=== PATIENT | male | born 1935 | race Caucasian/White ===

== ENCOUNTER 2025-05-25 11:50 | Outpatient (OUT) | payer OTHER, SELFPAY ==
--- OUTSIDE RECORDS SUMMARY | 2025-05-13 05:45 | XMS_ITS ---
Author Organization [facility] Address [address] [place] [address] Care Team Providers Care Jewel Waxer Name Role Phone KarinanikolemannSigifredo Primary Care Provider Ayo Gutierrez Unavailable [phone] Allergies No Known Allergies Reason For Referral Reason APPROVED ....PLEASE OBTAIN AUTHORIZATION FOR MRI WITH AND WITHOUT CONTRAST Diagnosis 1 Mass of left wrist ( R22.32) Referral Organization [facility] Referring Provider First Name Ayo Referring Provider Last Name Brittanie Referring Provider Speciality Orthopedic Surgery Referred Organization [facility] jackie Referred Address [place], [place], Procedure 1 MRI JOINT UPR EXTR W /O&W/DYE ([id number]) General Notes Mone Vincent 025 09:22:06 AM >IM ASSUMING FOR THE WRIST?, Jigna Chavez 05/16/2025 11:00:42 AM > Yes, left wrist, Mone Vincent 05/16/2025 11:04:20 AM >AVAILITY DOWNCarlton Amy 05/16/2025 01:28:31 PM >APPROVED PER DEVOTED AUTH #[id number] VALID 05/17/2025-08/17/2025 COPY IN CHART MA NOTIFIED REF FAXED TO Scott ARTHUR Kimberly 05/16/2025 03:32:21 PM > Faxed to Trav Referral Priority Routine REASON FOR VISIT LEFT WRIST PAIN Social History Tobacco Use: Social History Observation Description Date Details (start date - stop date) Current Smoker NA - NA AUDIT-C (Standard) Question Answer Notes Did you have a drink containing alcohol in the p ast year? No Points 0 Interpretation Negative Tobacco Control (Standard) Question Answer Notes Tobacco use: Current smoker Encounters Encounter Location Date Provider Diagnosis [facility] [address] [place] [address] 05/13/2025 Ayo Gu Mass of left wrist R22.32 and Pre-procedure lab exam Z01.812 Assessments Encounter Date Diagnosis (ICD Code) Assessment Notes Treatment Notes Treatment Clinical Notes Section Notes 05/13/2025 Mass of left wrist (ICD-10 - R22.32) 05/13/2025 Pre-procedure lab exam (ICD-10 - Z01.812) 05/13/2025 Other Given his increased pain after the cortisone injection I have recommended an MRI with and without contrast of the left wrist to evaluate for surgical excision. Will follow-up after this is completed. Plan has been agreed upon by my supervising physician, [MD Vick. Plan Of Treatment Treatment Notes Assessment Notes Other Given his increased pain after the cortisone injection I have recommended an MRI with and without contrast of the left wrist to evaluate for surgical excision. Will follow-up after this is completed. Plan has been agreed upon by my supervising physician, [MD Vick. Pending Test Test Name Order Date MRI : Wrist W AND W/O Contrast LEFT - 73 [id number] 05/13/2025 Creatinine 05/13/2025 Referrals Referral Date Details 05/13/2025 05/13/2025, APPROVED ....PLEASE OBTAIN AUTHORIZATION FOR MRI WITH AND WITHOUT CONTRAST, JAYY Arthur Next Appt Details Follow Up: AFTER MRI, Reason : Provider Name:Ayo Harris and, 07/29/2025 10:45:00 AM, [address], [place], [address], Progress Notes * JAILYN SALGUERO EDOB: [birth year] (89 yo M)Acc No.[id number]:05/13/2025 Patient: JAILYN BECKER Provider: John Gu MD :1935 A ge:89 Y S ex:Male Date:05/13/2025 Address[facility] [address] [phone] Pcp:Sigifredo Brooks Subjective: * Chief Complaints: * 1 . LEFT WRIST PAIN. * HPI: G eneral Info per Patient Report: Patient presents today with complaints of persistent left wrist pain. He had a cortisone injection a couple weeks ago. Last week he was having a lot of pain but is starting to get a little bit better. He was a little worried because the previous injection helped significantly but this past 1 did not really seem to calm down the pain. The cyst was much larger and that it is currently. He denies any numbness or tingling. * Medical History: M edical History Verified. * Family History: N o Family History documented.. * Social History: E xercise regularly D o you exercise? N o. A TREVOR-C (Standard) D id you have a drink containing alcohol in the past year? N o, P oints 0 , I nterpretation N egative. T obacco Control (Standard) T obacco use: C urrent smoker. * Allergies: N .K.D.A. Objective: * Vitals: * Examination: G eneral examination: T he patient is a age-appropriate [], alert and oriented x3 and in no acute distress. Well-dressed and well-groomed. Stands with normal body position and in a calm mood. On examination today there is a large ganglion cyst to the volar aspect of his wrist which is tender to palpate. He has some tenderness to the radiocarpal joint as well as the first CMC. No erythema drainage or clinical signs of infection. Palpable pulses. Brisk capillary fill and intact sensation to light touch. specific exam: x-ray imaging studies: [] specific exam: x-ray imaging studies: Assement:. Assessment: * Assessment: 1. M ass of left wrist - R22.32 (Primary) 2 . P re-procedure lab exam - Z01.812 Plan: * Treatment: 2. P re-procedure lab exam L AB: Creatinine 3. O thers Notes: Given his increased pain after the cortisone injection I have recommended an MRI with and without contrast of the left wrist to evaluate for surgical excision. Will follow-up after this is completed. Plan has been agreed upon by my supervising physician, [MD Vick. * Follow Up: A FTER MRI Forms: * Images: * Electronic signature of Dimitry Gu MD on 05/25/2025 at 12:01 PM EDT Sign off status: Pending * Provider: John Gu MD Date: 05/13/2025 Generated for Printi crissy/Adrián/eTransmitting on: 05/25/2025 12:01 PM EDT History and Physical Notes * HPI (History of Present Illness) Category Sub-Category Detail Notes Category Not es General Info per Patient Report Patient presents tod ay with complaints of persistent left wrist pain. He had a cortisone injection a couple weeks ago. Last week he was having a lot of pain but is starting to get a little bit better. He was a little worried because the previous injection helped significantly but this past 1 did not really seem to calm down the pain. The cyst was much larger and that it is currently. He denies any numbness or tingling. Examination Category Sub-Category Detail Notes Category Not es General examination The patient is a age-appropriate [], alert and oriented x3 and in no acute distress. Well-dressed and well-groomed. Stands with normal body position and in a calm mood. On examination today there is a large ganglion cyst to the volar aspect of his wrist which is tender to palpate. He has some tenderness to the radiocarpal joint as well as the first CMC. No erythema drainage or clinical signs of infection. Palpable pulses. Brisk capillary fill and intact sensation to light touch. specific exam: x-ray imaging studies: [] specific exam: x-ray imaging studies: Assement: Consultation Request Notes Referral Date Referring Provider Referred Provider Not es 05/13/2025 Ayo Gu , APPROVED .. ..PLEASE OBTAIN AUTHORIZATION FOR MRI WITH AND WITHOUT CONTRAST
--- OUTSIDE RECORDS SUMMARY | 2025-05-25 12:01 | XMS_ITS | Clinical Summary ---
Author Organization [facility] Address [address], [address] [place] [address] Care Team Providers Care Floor Refinisher Name Role Phone Sigifredo Brooks DNP Primary Care Provider [phone] Allergies No known active allergies Medications nitroGLYCERIN (NITROSTAT) 0.[address] 1 tablet under the tongue every 5 minutes as needed for Chest pain 25 tablet 06/23/20 20 Active lisinopril (PRINIVIL;ZESTRI L) 5 MG tablet Take 1 tablet by mouth daily 90 tablet 1 02/04/20 25 Active metoprolol succinate (TOPROL XL) 50 MG extended release tablet TAKE 1 TABLET BY MOUTH DAILY 90 tablet 1 03/14/20 25 Active hydroCHLOROthiaz elyse (HYDRODIURIL) 50 MG tabletIndication s:Essential hypertension TAKE 1 TABLET BY MOUTH DAILY 90 tablet 1 03/14/20 25 Active gabapentin (NEURONTIN) 800 MG tablet TAKE 1 TABLET BY MOUTH IN THE MORNING and TAKE 2 TABLETS AT BEDTIME 90 tablet 2 04/28/20 25 025 Active gabapentin (NEURONTIN) 800 MG tablet TAKE 1 TABLET BY MOUTH IN THE MORNING and TAKE 2 TABLETS AT BEDTIME 90 tablet 2 01/21/20 25 025 Discontinued Active Problems Problem Noted Date Diagnosed Date 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 06/20/2023 Neuropathic pain of right hand 06/20/2023 Chronic bilateral low back pain without sciatica 09/13/2019 HTN (hypertension) 12/31/2012 Hyperlipemia 12/31/2012 Resolved Problems Problem Noted Date Diagnosed Date Resolved Date Thrombocytopenia, unspecified 07/22/2023 03/04/2024 Coagulation defect 06/20/2023 3 Encounters Date Type Department Care Team Description 04/28/[address] [address] Sigifredo Brooks DNP Medication Refill 04/19/[address] [address] Sigifredo Brooks DNP wrist pain 03/14/[address] [address] Sigifredo Brooks DNP Medication Refill 03/10/2025 1:20 PM EDT Office Visit [address] [address] Sigifredo Brooks DNP Medicare annual wellness visit, subsequent (Primary Dx); Essential hypertension; Unsteady gait 03/10/[address] [address] Sigifredo Brooks DNP from Last 3 Months Immunizations Immunization Administration Dates Next Due Influenza, FLUARIX, FLULAVAL , FLUZONE (age 6 mo+) and AFLURIA, (age 3 y+), Quadv PF, 0.5mL 09/13/2019,09/18/2018 Influenza, FLUZONE High Dose , (age 65 y+), IM, Trivalent PF, 0.5mL 08/03/2020,08/03/2019 Pneumococcal, PCV-13, PREVNAR 13, (age 6w+), IM, 0.5mL 08/03/2019,02/29/2016 Pneumococcal, PPSV23, PNEUMO VAX 23, (age 2y+), SC/IM, 0.5mL 07/14/2019 Family History Medical History Relation Name Comments Heart Disease Father Cancer Mother Diabetes Sister 1 Diabetes Sister 2 Relation Name Status Comments Father Mother Sister 1 Alive Sister 2 Alive Social History Tobacco Use Types Packs/Day Years Used Date Smoking Tobacco: Every Day Cigarettes 0.5 71.6 Started: 11/03/1951 Passive Smoke Exposure: Current Smokeless Tobacco: Never Tobacco Cessation:Ready to Q uit: No; Counseling Given: Yes Comments:would like to quit/ cutting back Alcohol Use Standard Drinks/Week Comments Yes 0 (1 standard drink = 0.6 oz pur e alcohol) rarely [facility] [employer] Answer Date Recorded In the past 12 months has th e Controlus, gas, oil, or water company threatened to shut off services in your home? No 03/10/2025 AUDIT-C Answer Date Recorded Q1: How often do you have a drink containing alc ohol? Monthly or less 03/10/2025 Q2: How many drinks containi ng alcohol do you have on a typical day when you are drinking? 1 or 2 03/10/2025 Q3: How often do you have si x or more drinks on one occasion? Never 03/10/2025 Overall Financial Resource Strain (CARDIA) Answe r Date Recorded How hard is it for you to pa y for the very basics like food, housing, medical care, and heating? Not hard at all 06/03/2024 PHQ-2 Answer Date Recorded PHQ-9 Total Score 0 03/10/2025 Exercise Vital Sign Answer Date Recorde d On average, how many days pe r week do you engage in moderate to strenuous exercise (like a brisk walk)? 0 days 03/10/2025 On average, how many minutes do you engage in exercise at this level? 0 min 03/10/2025 Hunger Vital Sign Answer Date Recorded Within the past 12 months, y ou worried that your food would run out before you got the money to buy more. Never true 03/10/20 25 Within the past 12 months, t he food you bought just didn't last and you didn't have money to get more. Never true 03/10/2025 PRAPARE - Transportation Answer Date Re corded In the past 12 months, has l ack of transportation kept you from medical appointments or from getting medications? No 06/2025 In the past 12 months, has l ack of transportation kept you from meetings, work, or from getting things needed for daily living? No 03/10/2025 Housing Stability Vital Sign Answer Niko e Recorded Unable to Pay for Housing in the Last Year Not o n file 06/03/2024 Number of Places Lived in the Last Year Not on f ile 06/03/2024 In the last 12 months, was t here a time when you did not have a steady place to sleep or slept in a snf (including now)? No 06/03/2024 Housing Stability Vital Sign Answer Niko e Recorded In the last 12 months, was t here a time when you were not able to pay the mortgage or rent on time? No 03/10/2025 In the past 12 months, how m any times have you moved where you were living? 0 03/10/2025 At any time in the past 12 m [facility], were you homeless or living in a snf (including now)? No 03/10/2025 Food Insecurity Answer Date Recorded Within the past 12 months, y ou worried that your food would run out before you got the money to buy more. 1 03/10/2025 Within the past 12 months, t he food you bought just didn't last and you didn't have money to get more. 1 03/10/2025 Sex and Gender Information Value Date Recorded Sex Assigned at Not on file Legal Sex Male 7:46 PM EST Gender Identity Not on file Sexual Orientation Not on file Last Filed Vital Signs Vital Sign Reading Time Taken Comments Blood Pressure 122/82 03/10/2025 1:16 PM EDT Pulse 67 03/10/2025 1:16 PM EDT Temperature 36.6 C (97.8 F) 06/10/2024 12:57 PM EDT Respiratory Rate 18 06/06/2017 1:28 PM EDT Oxygen Saturation 98% 03/10/2025 1:16 PM EDT Inhaled Oxygen Concentration - - Weight 100.7 kg (222 lb) 03/10/2025 1:16 PM EDT Height 177.8 cm (5' 10 ) 03/10/2025 1:16 PM EDT Body Mass Index 31.85 03/10/2025 1:16 PM EDT Plan of Treatment Upcoming Encounters Date Type Department Care Team (Late st Contact Info) Description 09/13/2025 1:00 PM EST Office Visit [facility] [address] [place] [address] Sigifredo Brooks DNP [address] [place] [phone] 6 mos - HTN, HLD Health Maintenance Due Date Last Done Comments DTaP/Tdap/Td vaccine (1 - Tdap) 1956 Shingles vaccine (1 of 2) 1987 Respiratory Syncytial Virus (RSV) or age 60 yrs+ (1 - 1-dose 75+ series) 2012 COVID-19 Vaccine (2023- season) 2024 Flu vaccine (#1) 06/03/2025 08/03/2020, 09/2019, 08/03/2019, Additional history exists Depression Screen 03/10/2026 03/10/2025, 03/10/2025 Pneumococcal 50+ years Vaccine Completed 08/03/2019, 07/14/2019, 02/29/2016 Lipids Discontinued 04/18/2021, 04/04, 02/17/2019, Additional history exists Annual Wellness Visit (Medicare Advantage) Completed 03/10/2025, 03/04/2024, 07/22/2023, Additional history exists Hepatitis A vaccine Aged Out No longe r eligible based on patient's age to complete this topic Hepatitis B vaccine Aged Out No longe r eligible based on patient's age to complete this topic Hib vaccine Aged Out No longer eligi ble based on patient's age to complete this topic Meningococcal (ACWY) vaccine Aged Out No longer eligible based on patient's age to complete this topic Meningococcal B vaccine Aged Out No l onger eligible based on patient's age to complete this topic Polio vaccine Aged Out No longer elig ible based on patient's age to complete this topic Procedures Procedure Name Priority Date/Time Associated Diagnosis Comments LIPID PANEL Routine 04/18/2021 9:23 AM EDT from Last 3 Months or Most Recently Relevant to Health Maintenance Results * Lipid Panel (04/18/2021 9:23 AM EDT) Cholesterol 129 <200 mg/dL 04/18/2021 9:23 AM EDT [employer] Comment: Cholesterol Guidelines: <200 Desirable 200-240 Borderline >240 Undesirable HDL 45 >40 mg/dL 04/18/2021 9:23 AM EDT [employer] Comment: HDL Guidelines: <40 Undesirable 40-59 Borderline >59 Desirable LDL Cholesterol 68 0 - 130 mg/dL 04/18/2021 9:23 AM EDT [employer] Comment: LDL Guidelines: <100 Desirable 100-129 Near to/above Desirable 130-159 Borderline >159 Undesirable Direct (measured) LDL and calculated LDL are not interchangeable tests. Chol/HDL Ratio 2.9 <5 04/18/2021 9:23 AM EDT [employer] Comment: Triglycerides 81 <150 mg/dL 04/18/2021 9:23 AM EDT [employer] Comment: Triglyceride Guidelines: <150 Desirable 150-199 Borderline 200-499 High >499 Very high Based on AHA Guidelines for fasting triglyceride, August 2012. VLDL NOT REPORTED 1 - 30 mg/dL 04/18/2021 9:23 AM EDT [employer] 04/18/2021 9:23 AM EDT 04/18/2021 9:24 AM EDT Cleve Faria MD CHEMISTRY ORDERABLES Final Result [facility] [address] [place] [address], [facility] [phone] [employer] [address] [place] [address], [facility] [phone] from Last 3 Months or Most Recently Relevant to Health Maintenance Insurance [employer] Advance Directives Healthcare Agents on File Name Relationship [facility] Migdalia Toussaint Spouse Primary Decision Maker Care Teams Floor Refinisher Relationship Specialty Start Date End Date Sigifredo Brooks DNP [address] [place] [phone] PCP - General Family Nurse Practitioner 06/09/18
--- OUTSIDE RECORDS SUMMARY | 2025-05-25 12:01 | XMS_ITS | Encounter Summary ---
Author Organization [facility] Address [address] [place] [address] Phone Care Team Providers Care Mess Cook Name Role Phone Unavailable Primary Care Provider Unavailabl e Encounter Details Date Type Department Care Team (Late st Contact Info) Description 04/28/2020 Orders Only [facility] [address] [place] [address] Conversion, Onbase Social History Tobacco Use Types Packs/Day Years Used Date Smoking Tobacco: Never Assessed Sex and Gender Information Value Date Recorded Sex Assigned at Not on file Legal Sex Male 2:02 PM EST Gender Identity Not on file Sexual Orientation Not on file documented as of this encounter Plan of Treatment Scheduled Orders Name Type Priority Associated Diagnoses Orde r Schedule OUTSIDE LAB SCAN Lab Ordered: 04/28/2020 OUTSIDE LAB SCAN Lab Ordered: 04/28/2020 documented as of this encounter Visit Diagnoses Not on filedocumented in this encounter
--- OUTSIDE RECORDS SUMMARY | 2025-05-25 12:01 | XMS_ITS | Encounter Summary ---
Author Organization [facility] Address [address] [place] [address] Phone Care Team Providers Care Vacuum Form Operator Name Role Phone Unavailable Primary Care Provider Unavailabl e Encounter Details Date Type Department Care Team (Late st Contact Info) Description 04/18/2021 Orders Only [facility] [address] [place] [address] Conversion, Onbase Social History Tobacco Use Types [...] r Schedule OUTSIDE LAB SCAN Lab Ordered: 04/18/2021 OUTSIDE LAB SCAN Lab Ordered: 04/18/2021 documented as of this encounter Visit Diagnoses Not on filedocumented in this encounter
--- OUTSIDE RECORDS SUMMARY | 2025-05-25 12:01 | XMS_ITS | Clinical Summary ---
Author Organization [facility] Address [address] [place] [address] Phone Care Team Providers Care Actuarial Internship Name Role Phone Unavailable Primary Care Provider Unavailabl e Social History Tobacco Use Types Packs/Day Years Used Date Smoking Tobacco: Never Assessed Sex and Gender Information Value Date Recorded Sex Assigned at Not on file Legal Sex Male 2:02 PM EST Gender Identity Not on file Sexual Orientation Not on file Plan of Treatment Not on file
--- NOTE | 2025-05-25 12:14 | MR_ITS ---
[facility] [place] [id number] Patient Name: JAILYN SALGUERO MRN: [id number] date: 1935 Sex: M Assigned Patient Location: LAB Current Patient Location: LAB Accession/Order Number: [id number] Exam Date: 05/25/2025 15:46 Report Date: 05/25/2025 16:15 At the request of: LUDMILA FOREMAN MD Procedure: MR wrist LT wo/w con MRI of the left wrist with and without contrast Routine technique with 20 cc of gadolinium contrast administered. COMPARISON: None HISTORY: Mass in the anterior aspect of the left wrist. Skin markers identified in the mass applied. In the volar aspect of the radial side of the wrist there is a multiloculated cystic fluid collection. This measures 3.2 x 2.0 x 1.8 cm Adjacent edema identified. Minimal peripheral enhancement present. This abuts the radial aspect of the scaphoid and radial styloid. Findings of synovial hypertrophy adjacent to this collection with extension into the radiocarpal joint the scapholunate articulation of the mid carpal row and dorsal to the distal ulna A perforation of the triangular fibrocartilage near the sigmoid notch. Abutment changes of the distal ulna in the lunate. Marked cystic changes of proximal portion of the hamate. 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 No bony contusion. No acute linear fracture. Intact tendons with mild findings of tenosynovitis. MR/MR wrist LT wo/w con IMPRESSION: Within the region of palpable abnormality of the wrist there is multiloculated cystic collection measuring up to 3.2 cm. This most consistent with ganglion cyst. This may arise from the scaphoid and radial ulnar styloid articulation. Extensive inflammatory tissue throughout the joint space involving radial carpal region scapholunate articulation and mid carpal row and anterior to the distal ulna. Additional carpal cystic changes and distal ulnar cystic changes associated erosive changes. 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 A tear of the triangular cartilage near the sigmoid notch. Impingement changes of the distal ulna and lunate. 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 The widening of the scapholunate articulation with edematous changes of the hamate which may represent proximal migration. Impression dictated by: Ruddy Edmonds M.D. 05/25/2025 4:15 PM Dictation Location: [place] [address] Electronically authenticated by: [id number] Y Date: 05/25/2025 16:15
[2025-05-25 12:25] LABS: Estimated GFR (African America >60 (>=60 mL/min/1.73m^2); Estimated GFR (Non-African Ame >60 (>=60 mL/min/1.73m^2)
== END 2025-05-25 11:51 | disposition home or self-care (01) ==
LOC: LAB 11:57
PROVIDERS: Pathology Anatomic Pathology & Clinical Pathology; Family Provider Family Medicine; Visit Provider Orthopaedic Surgery
DX: R22.32 Localized swelling, mass and lump, left upper limb (principal); M87.88 Other osteonecrosis, other site
CPT/HCPCS: 36415; 73223; 82565; A9575